=== PATIENT | female | born 1995 | race Caucasian/White ===

== ENCOUNTER 2018-01-28 21:27 | Emergency (ER) | payer BC ==
[~2018-01-28] VITALS: Ht 160 cm; Wt 65.8 kg
[2018-01-28 21:27] VITALS: BP 123/73
--- NOTE | 2018-01-28 22:03 | NUR ---
EMT AT BEDSIDE FOR WOUND CARE TO L KNEE. CLEANED WITH NS AND DRESSING APPLIED.
[2018-01-28] MEDS ORDERED: TDAP [DIPH/PERTUSSIS/TET] 0.5 ML VIAL IM ONE ×2 (22:12→22:30)
== END 2018-01-28 22:32 | disposition home or self-care (01) ==
LOC: ER 21:27
DX: S80.01XA Contusion of right knee, initial encounter (principal); W01.0XXA Fall on same level from slipping, tripping and stumbling without subsequent striking against object, initial encounter; Y93.01 Activity, walking, marching and hiking; Y92.89 Other specified places as the place of occurrence of the external cause; Y99.8 Other external cause status
CPT/HCPCS: 90715; A4606; A6402; A6403; Z7610